=== PATIENT | male | born 1995 | race Caucasian/White ===

== ENCOUNTER 2016-10-02 20:05 | Emergency (ER) | payer OTHER ==
[2016-10-02] MEDS ORDERED: DIPHENHYDRAMINE HCL 50 MG/1 ML VIAL ONE (22:28)
[2016-10-02] MEDS ORDERED: KETOROLAC TROMETHAMINE 15 MG/ML VIAL ONE (22:28)
[2016-10-02] MEDS ORDERED: METOCLOPRAMIDE HCL 5 MG/ML 2ML VIAL ONE (22:28)
[2016-10-02] MEDS ORDERED: LACTATED RINGERS 1,000 ML ONE (22:29)
== END 2016-10-02 23:38 | disposition home or self-care (01) ==
LOC: ED 20:05
DX: R51 Headache (principal); F17.210 Nicotine dependence, cigarettes, uncomplicated
CPT/HCPCS: 96375 ×2; 99283 ×2; 96374; J1200; J2765; J1885; J7120